=== PATIENT | female | born 1980 | race Two or more races ===

== ENCOUNTER 2019-03-27 20:49 | Emergency (ER) | payer SELFPAY ==
[2019-03-27] MEDS ORDERED: Sodium Chloride 0.9% 1,000 ML IV ONE (21:10)
--- NOTE | 2019-03-27 21:13 | ED Physician Chart ---
ED Chief Complaint/HPI - Patient Information Date Seen:: 03/27/19 Time Seen:: 21:11 Chief Complaint:: abd pain History of Present Illness:: 38 yr old female here for gb attack after she ate fried greasy foods yest with pain nausea no fever no vomiting has appt to have her gallbladder out soon wants note for off work tonight Allergies:: Allergies Allergy/AdvReac Type Severity Reaction Status Date / Time MDX PCN (penicillin) Allergy Verified 12/27/15 18:44 [PCN (penicillin)] Vitals:: Vital Signs - 8 hr 03/27/19 20:56 Temp 98.5 F HR 86 RR 18 BP 118/78 O2 Sat % 98 ED Review of Systems - Review of Systems General/Constitutional: Fever Skin: No skin lesions Head: No headache Eyes: No loss of vision ENT: No earache Neck: No neck pain Cardio Vascular: No chest pain Pulmonary: No SOB GI: Nausea, No vomiting G/U: No dysuria Musculoskeletal: No bone or joint pain Endocrine: No polyuria Psychiatric: No prior psych history Hematopoietic: No bruising Allergic/Immuno: No urticaria Neurological: No syncope Family Medical History - Family Member Mother History Unknown: Yes ED Physical Exam - Physical Examination General/Constitutional: Awake, Well-developed, well-nourished, Alert, No distress, GCS 15, Non-toxic appearing, Ambulatory Head: Atraumatic Eyes: Lids, conjuctiva normal, PERRL, EOMI Skin: Nl inspection, No rash, No skin lesions, No ecchymosis, Well hydrated, No lymphadenopathy ENMT: External ears, nose nl, Nasal exam nl, Lips, teeth, gums nl Neck: Nontender, Full ROM w/o pain, No JVD, No nuchal rigidity, No bruit, No mass, No stridor Respiratory: Nl effort/Exclusion, Clear to Auscultation, No Wheeze/Rhonchi/Rales Cardio Vascular: RRR, No murmur, gallop, rubs, NL S1 S2 GI: No tenderness/rebounding/guarding, No organomegaly, No hernia, Normal BS's, Nondistended, No mass/bruits, No McBurney tenderness : No CVA tenderness Extremities: No tenderness or effusion, Full ROM, normal strength in all extremities, No edema, Normal digits & nails Neuro/Psych: Alert/oriented, DTR's symmetric, Normal sensory exam, Normal motor strength, Judgement/insight normal, Mood normal, Normal gait, No focal deficits Misc: Normal back, No paraspinal tenderness ED Assessment - Assessment General Assessment: abd pain gallstones ED Septic Shock - . Is Septic Shock (SBP<90, OR Lactate>4 mmol\L) present?: No - <6hrs of presentation: Vital Signs: Vital Signs - 8 hr // 20:56 Temp 98.5 F HR 86 RR 18 BP 118/78 O2 Sat % 98 ED Reassessment (Disposition) - Reassessment Reassessment:: abd pain gallstones - Diagnosis Diagnosis:: as above - Patient Disposition Discharge/Transfer:: Home Condition at Disposition:: Stable
[2019-03-27 21:25] VITALS: BP 118/79
== END 2019-03-27 22:43 | disposition home or self-care (01) ==
LOC: ER 20:49
DX: K80.80 Other cholelithiasis without obstruction (principal); Z88.0 Allergy status to penicillin
CPT/HCPCS: 99283; 96374; 96375; J1885; J2405; J7030; Z7502